=== PATIENT | female | born 1955 | race Caucasian/White ===

== ENCOUNTER 2018-07-26 14:23 | Emergency (ER) | payer OTHER ==
[2018-07-26] MEDS: CEPHALEXIN 500 MG CAP PO (17:10)
[2018-07-26] MEDS: IBUPROFEN 600 MG TAB PO (17:10)
[2018-07-26] MEDS: TRIMETHOPRIM/SULFAMETHOX (DS) TAB PO (17:10)
== END 2018-07-26 17:29 | disposition home or self-care (01) ==
LOC: FTE 14:23
DX: L03.114 Cellulitis of left upper limb (principal); I10 Essential (primary) hypertension
CPT/HCPCS: 99283; Z7502